=== PATIENT | female | born 1945 | race Caucasian/White ===

== ENCOUNTER → 2016-08-11 | Outpatient (CLI) | payer OTHER | END | disposition home or self-care (01) | LOC: RT 08:33 | PROVIDERS: ATTEND Internal Medicine Pulmonary Disease | DX: J44.9 Chronic obstructive pulmonary disease, unspecified (principal) | CPT/HCPCS: 94060 ==

== ENCOUNTER → 2017-02-07 | Outpatient (CLI) | payer OTHER ==
[2017-02-07 09:32] LABS: Urine RBC None Seen /hpf (0 - 4)
[2017-02-07 09:43] LABS: Basophils # (auto) 0 uL; Basophils % (auto) 0.5 % (0.0-2.0); CONDITION Y; Eosinophils # (auto) 0.2 uL; Hematocrit 41.3 % (36.0-46.0); Hemoglobin 13.9 g/dL (12.2-16.2); Lymphocytes # (auto) 2.7 uL; Lymphocytes % (auto) 32.8 % (10.0-50.0); Mean Corpuscular Hemoglobin 31.3 pg (28.0-32.0); Mean Corpuscular Hgb Conc. 33.7 g/dL (32.0-36.0); Mean Platelet Volume 7.6 fL (7.4-10.4); Monocytes # (auto) 0.8 uL; Monocytes % (auto) 9.8 % (0.0-12.0); Neutrophils # (auto) 4.4 uL; Neutrophils % (auto) 53.9 % (37.0-80.0); Platelet Count (auto) 330 10^3/uL (140-450); Red Cell Distribution Width 14.1 % (11.6-16.0); White Blood Cell 8.2 10^3/uL (4.4-10.8)
[2017-02-07 09:46] LABS: Urine Bilirubin Negative (Negative); Urine Blood Negative /uL (Negative); Urine Color Yellow (Yellow); Urine Glucose Normal (Normal); Urine Ketone Negative (Negative); Urine Nitrite Negative (Negative); Urine Squamous Epithelial Cell FEW /hpf (<5); Urine Urobilinogen Normal (Negative); Urine pH 6.5 (5.0-8.0)
[2017-02-07 10:17] LABS: Albumin 3.8 g/dL (3.4-5.0); BUN/Creatinine Ratio 12.4; Bilirubin, Total 0.4 mg/dL (0.2-1.0); Calcium 9.2 mg/dL (8.5-10.1); Potassium 3.7 mmol/L (3.5-5.1); Total Protein 7.4 g/dL (6.4-8.2)
== END | disposition home or self-care (01) ==
LOC: LAB 09:18
PROVIDERS: ATTEND Internal Medicine
DX: I10 Essential (primary) hypertension (principal); Z13.1 Encounter for screening for diabetes mellitus
CPT/HCPCS: 36415; 80053; 80061; 81001; 82043; 82306; 82607; 84439; 84443; 85025; 85652